=== PATIENT | female | born 2005 | race Caucasian/White ===

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

== ENCOUNTER 2023-02-04 21:43 | Emergency (ER) | payer OTHER ==
[~2023-02-04] VITALS: Ht 172.7 cm; Wt 73.3 kg
[~2023-02-04 21:43] MED LIST changes: +DILA100C PO
[2023-02-04 22:15] VITALS: BP 132/75
[2023-02-04 22:46] LABS: BASO # 0.1 10^3/uL (0.0-0.2); BASO % 0.9 % (0.0-1.0); EOS # 0.1 10^3/uL (0.0-0.5); EOS % 1.4 % (0.0-3.0); HEMATOCRIT 37.6 % (36.0-47.0); HEMOGLOBIN 12.4 g/dl (12.0-15.5); LYMPH # 2.1 10^3/uL (1.5-5.0); MEAN CORPUSCULAR HEMOGLOBIN 30.2 pg (27.0-33.0); MEAN CORPUSCULAR VOLUME 91.5 fl (80.0-96.0); MONO # 0.6 10^3/uL (0.0-0.8); MONO % 6.4 % (2.0-8.0); NEUTROPHILS # 5.8 10^3/uL (1.5-8.5); NEUTROPHILS % 67.1 % (36.0-66.0); PLATELET COUNT, AUTOMATED 290 10^3/uL (150-450); RED BLOOD COUNT 4.11 10^6/uL (4.00-5.40); WHITE BLOOD COUNT 8.7 10^3/uL (4.0-10.0)
[2023-02-04 22:52] LABS: ETHYL ALCOHOL (ETHANOL) < 0.003 % (0.000-0.010)
[2023-02-04 22:54] LABS: ALKALINE PHOSPHATASE 52 U/L (46-116); ALT/SGPT 19 U/L (7.0-40); AST/SGOT 21 U/L (<34); BILIRUBIN,DIRECT < 0.1 MG/DL (<0.4); BILIRUBIN,TOTAL 0.2 MG/DL (0.3-1.2); BLOOD UREA NITROGEN 19 MG/DL (9-23); CALCIUM LEVEL 9.3 MG/DL (8.5-10.1); CARBON DIOXIDE LEVEL 26 MMOL/L (20-31); CHLORIDE LEVEL 107 MMOL/L (98-107); CREATININE FOR GFR 0.77 MG/DL (0.55-1.30); GLUCOSE, FASTING 73 MG/DL (60-100); MAGNESIUM LEVEL 1.9 MG/DL (1.8-2.4); POTASSIUM SERUM 4.2 MMOL/L (3.5-5.1); SODIUM LEVEL 144 MMOL/L (136-145); TOTAL PROTEIN 6.8 G/DL (5.7-8.2)
[2023-02-04] MEDS ORDERED: PHENYTOIN INJ 250MG/5ML VIAL IV ONE (23:05)
[2023-02-04] MEDS ORDERED: PHENYTOIN IV ONE (23:15)
[2023-02-04] MEDS ORDERED: NS IV ONE (23:15)
[2023-02-04] MEDS ORDERED: PHENYTOIN ER 100 MG CAP PO ONE (23:45)
== END 2023-02-05 00:05 | disposition home or self-care (01) ==
LOC: M ED 21:43 → EDBD 21:43 → M ED 02-05 00:05
DX: R56.9 Unspecified convulsions (principal); F17.200 Nicotine dependence, unspecified, uncomplicated; Z91.040 Latex allergy status; Z79.51 Long term (current) use of inhaled steroids

== ENCOUNTER 2023-05-09 17:00 | Emergency (ER) | payer OTHER ==
[~2023-05-09] VITALS: Ht 170.2 cm; Wt 73.7 kg
[2023-05-09 17:05] VITALS: TEMP 98.1
[2023-05-09 17:16] LABS: IONIZED CALCIUM 4.7 MG/DL (4.5-5.3)
[2023-05-09] MEDS ORDERED: NORE1PAT (17:20)
[2023-05-09 17:21] LABS: BASO # 0.1 10^3/uL (0.0-0.2); BASO % 1.2 % (0.0-1.0); EOS # 0.1 10^3/uL (0.0-0.5); EOS % 2.1 % (0.0-3.0); HEMATOCRIT 41.9 % (36.0-47.0); HEMOGLOBIN 13.9 g/dl (12.0-15.5); LYMPH # 1.2 10^3/uL (1.5-5.0); LYMPH % 24.1 % (24.0-44.0); MEAN CORPUSCULAR HEMOGLOBIN 30.2 pg (27.0-33.0); MEAN CORPUSCULAR HGB CONC 33.2 g/dl (32.0-36.5); MEAN CORPUSCULAR VOLUME 90.9 fl (80.0-96.0); MONO # 0.4 10^3/uL (0.0-0.8); MONO % 9.1 % (2.0-8.0); NEUTROPHILS % 63.3 % (36.0-66.0); PLATELET COUNT, AUTOMATED 249 10^3/uL (150-450); RED BLOOD COUNT 4.61 10^6/uL (4.00-5.40); WHITE BLOOD COUNT 4.8 10^3/uL (4.0-10.0)
[2023-05-09] MEDS ORDERED: levETIRAcetam INJection 1,000 MG in D5W 100 ML IV ONE (17:30)
[2023-05-09 17:52] LABS: ALBUMIN 4.1 G/DL (3.2-5.2); ALKALINE PHOSPHATASE 44 U/L (46-116); ALT/SGPT 12 U/L (7.0-40); AST/SGOT 12 U/L (<34); BILIRUBIN,DIRECT 0.2 MG/DL (<0.4); BILIRUBIN,TOTAL 0.5 MG/DL (0.3-1.2); BLOOD UREA NITROGEN 13 MG/DL (9-23); CALCIUM LEVEL 9.5 MG/DL (8.5-10.1); CARBON DIOXIDE LEVEL 24 MMOL/L (20-31); CHLORIDE LEVEL 110 MMOL/L (98-107); CREATININE FOR GFR 0.67 MG/DL (0.55-1.30); GLUCOSE, FASTING 95 MG/DL (60-100); MAGNESIUM LEVEL 1.8 MG/DL (1.8-2.4); PHOSPHORUS LEVEL 3.1 MG/DL (2.5-4.9); POTASSIUM SERUM 4.1 MMOL/L (3.5-5.1); SODIUM LEVEL 142 MMOL/L (136-145); TOTAL PROTEIN 7.2 G/DL (5.7-8.2)
[2023-05-09 17:57] LABS: RSV AMPLIFICATION NEGATIVE (NEGATIVE)
[2023-05-09] MEDS ORDERED: LORazepam 2 MG/ML 1ML VIAL IV STA (18:12)
[2023-05-09 22:30] VITALS: BP 130/76; O2SAT 100
[2023-05-09] MEDS ORDERED: KEPP1TAB2 PO (22:53)
== END 2023-05-09 23:27 | disposition home or self-care (01) ==
LOC: M ED 17:00 → EDBD 17:00 → M ED 23:27
DX: G40.909 Epilepsy, unspecified, not intractable, without status epilepticus (principal); Z91.040 Latex allergy status; Z79.51 Long term (current) use of inhaled steroids; Z79.3 Long term (current) use of hormonal contraceptives
CPT/HCPCS: 70450; 80048; 80076; 82140; 82330; 83605; 83735; 84100; 84702; 85025; 87631; 93041; 94760; 96374; 96375; 99285; J1953; J2060

== ENCOUNTER → 2023-06-10 | Outpatient (REF) | payer OTHER ==
[~2023-06-10] MED LIST changes: +KEPP1TAB2 PO; +NORE1PAT
[2023-06-10 19:07] LABS: BASO # 0.1 10^3/uL (0.0-0.2); BASO % 1.5 % (0.0-1.0); EOS # 0.2 10^3/uL (0.0-0.5); EOS % 3.4 % (0.0-3.0); HEMATOCRIT 39.8 % (36.0-47.0); LYMPH # 1.5 10^3/uL (1.5-5.0); LYMPH % 28.1 % (24.0-44.0); MEAN CORPUSCULAR HEMOGLOBIN 30.4 pg (27.0-33.0); MEAN CORPUSCULAR HGB CONC 32.7 g/dl (32.0-36.5); MONO # 0.4 10^3/uL (0.0-0.8); MONO % 8.4 % (2.0-8.0); NEUTROPHILS % 57.1 % (36.0-66.0); PLATELET COUNT, AUTOMATED 259 10^3/uL (150-450); RED BLOOD COUNT 4.28 10^6/uL (4.00-5.40); WHITE BLOOD COUNT 5.3 10^3/uL (4.0-10.0)
[2023-06-10 19:34] LABS: THYROID STIMULATING HORMONE 1.971 uIU/ML (0.48-4.17)
[2023-06-10 19:35] LABS: ALBUMIN 3.9 G/DL (3.2-5.2); ALKALINE PHOSPHATASE 40 U/L (46-116); ALT/SGPT < 9 U/L (7.0-40); AST/SGOT 9 U/L (<34); BILIRUBIN,TOTAL 0.4 MG/DL (0.3-1.2); BLOOD UREA NITROGEN 13 MG/DL (9-23); CALCIUM LEVEL 9.6 MG/DL (8.5-10.1); CARBON DIOXIDE LEVEL 23 MMOL/L (20-31); CHLORIDE LEVEL 109 MMOL/L (98-107); CHOLESTEROL LEVEL 168 MG/DL (<200); CHOLESTEROL RISK RATIO 2.08 (<5); CREATININE FOR GFR 0.67 MG/DL (0.55-1.30); GLUCOSE, FASTING 77 MG/DL (60-100); HDL CHOLESTEROL 80.4 MG/DL (>40); LDL CHOLESTEROL 70.2 MG/DL (<100); NON-HDL-C 87.6 MG/DL; POTASSIUM SERUM 4.9 MMOL/L (3.5-5.1); SODIUM LEVEL 141 MMOL/L (136-145); TRIGLYCERIDES LEVEL 87 MG/DL (<150)
[2023-06-10 19:59] LABS: HIV 1&2 SCREEN NEGATIVE (NEGATIVE)
[2023-06-10 20:00] LABS: GC DNA AMPLIFICATION NEGATIVE (NEGATIVE)
[2023-06-10 20:07] LABS: HEPATITIS C VIRUS ABY INDEX 0.12 INDEX (<0.8)
[2023-06-12 10:11] LABS: HEMOGLOBIN A1c 5.1 % (4.0-6.0)
== END ==
LOC: M LAB REF 16:11
PROVIDERS: ATTEND Physician Assistant
DX: Z11.3 Encounter for screening for infections with a predominantly sexual mode of transmission (principal); Z13.228 Encounter for screening for other metabolic disorders; G40.911 Epilepsy, unspecified, intractable, with status epilepticus

== ENCOUNTER 2023-07-29 15:03 | Inpatient (IN) | payer OTHER ==
[~2023-07-29] VITALS: Ht 167.6 cm; Wt 71.0 kg
[2023-07-29] VITALS (14 sets, daily range): BP systolic 117–146; BP diastolic 55–77; TEMP 97.5–98.3; O2SAT 99–100
[2023-07-29] MEDS ORDERED: ETOMIDATE INJ 20MG/10ML VIAL IV ONE (15:10)
[2023-07-29] MEDS ORDERED: ROCURONIUM BROMIDE 50MG/5ML VIAL IV ONE (15:10)
[2023-07-29] MEDS ORDERED: MIDAZOLAM 100MG/100ML-0.9%NACL 100 MG in IV 1 EA IV SCH ×2 (15:10→17:35)
[2023-07-29] MEDS: LORazepam 2 MG/ML 1ML VIAL IV PRN ×2 (15:19→16:17)
[2023-07-29 15:33] LABS: BASO # 0.1 10^3/uL (0.0-0.2); BASO % 0.5 % (0.0-1.0); EOS % 0.3 % (0.0-3.0); HEMATOCRIT 43.4 % (36.0-47.0); HEMOGLOBIN 14.6 g/dl (12.0-15.5); LYMPH # 1.4 10^3/uL (1.5-5.0); LYMPH % 13.8 % (24.0-44.0); MEAN CORPUSCULAR HEMOGLOBIN 30.7 pg (27.0-33.0); MEAN CORPUSCULAR HGB CONC 33.6 g/dl (32.0-36.5); MEAN CORPUSCULAR VOLUME 91.4 fl (80.0-96.0); MONO # 0.6 10^3/uL (0.0-0.8); MONO % 5.9 % (2.0-8.0); NEUTROPHILS # 7.8 10^3/uL (1.5-8.5); NEUTROPHILS % 79.3 % (36.0-66.0); PLATELET COUNT, AUTOMATED 266 10^3/uL (150-450); RED BLOOD COUNT 4.75 10^6/uL (4.00-5.40); WHITE BLOOD COUNT 9.8 10^3/uL (4.0-10.0)
[2023-07-29 15:47] LABS: ABG BASE EXCESS -2.6 (-2.0-2.0); ABG HCO3 21.6 MMOL/L (22.0-26.0); ABG O2 SATURATION 99.3 % (95.0-99.0); ABG PARTIAL PRESSURE CO2 36.1 mmHg (35.0-45.0); ABG PARTIAL PRESSURE O2 190.3 mmHg (75.0-100.0); ABG STANDARD HCO3 22.3 MMOL/L. (22.0-26.0); ABG TOTAL CO2 22.7 MMOL/L (22.0-29.0); ABG pH (ARTERIAL) 7.395 UNITS (7.350-7.450)
[2023-07-29 15:55] LABS: ALBUMIN 4.2 G/DL (3.2-5.2); ALKALINE PHOSPHATASE 48 U/L (46-116); ALT/SGPT 16 U/L (7.0-40); AST/SGOT 21 U/L (<34); BILIRUBIN,DIRECT 0.1 MG/DL (<0.4); BILIRUBIN,TOTAL 0.4 MG/DL (0.3-1.2); BLOOD UREA NITROGEN 13 MG/DL (9-23); CALCIUM LEVEL 9.4 MG/DL (8.5-10.1); CARBON DIOXIDE LEVEL 20 MMOL/L (20-31); CHLORIDE LEVEL 110 MMOL/L (98-107); CREATININE FOR GFR 0.81 MG/DL (0.55-1.30); GLUCOSE, FASTING 109 MG/DL (60-100); MAGNESIUM LEVEL 1.8 MG/DL (1.8-2.4); POTASSIUM SERUM 4.5 MMOL/L (3.5-5.1); SODIUM LEVEL 142 MMOL/L (136-145); TOTAL PROTEIN 7.4 G/DL (5.7-8.2)
[2023-07-29] MEDS ORDERED: LEVETIRACETAM IV ONE (16:00)
[2023-07-29] MEDS ORDERED: D5W IV ONE (16:00)
[2023-07-29] MEDS: ROCURONIUM BROMIDE 50MG/5ML VIAL IV PRN ×2 (16:26→16:59)
[2023-07-29] MEDS ORDERED: propofoL 1,000 MG in IV 1 EA IV SCH (16:50)
[2023-07-29] MEDS: propofoL 1,000 MG in IV 1 EA IV SCH ×3 (17:35→23:23)
[2023-07-29 18:32] LABS: AMPHETAMINES LEVEL URINE NEGATIVE (NEGATIVE); BARBITURATES URINE NEGATIVE (NEGATIVE); COCAINE METABOLITE URINE NEGATIVE (NEGATIVE); METHADONE URINE NEGATIVE (NEGATIVE); OPIATES URINE NEGATIVE (NEGATIVE); PHENCYCLIDINE URINE NEGATIVE (NEGATIVE)
[2023-07-29 18:37] LABS: BENZODIAZEPINES URINE POSITIVE (NEGATIVE); CANNABINOIDS URINE POSITIVE (NEGATIVE)
[2023-07-29] MEDS ORDERED: MED REC COMMENT (19:12)
[2023-07-29] MEDS ORDERED: HOME MED LIST COMPLETE! XX SCH (19:20)
[2023-07-29] MEDS: MIDAZOLAM 100MG/100ML-0.9%NACL 100 MG in IV 1 EA IV SCH (20:12)
[2023-07-29] MEDS: MIDAZOLAM INJ 2MG/2ML VIAL IV PRN (20:17)
[2023-07-29] MEDS: CHLORHEXIDINE GLUCONATE 0.12 % 15ML UDC (PERIDEX ORAL RINSE) MT SCH (20:27)
[2023-07-29] MEDS ORDERED: ATORVASTATIN 20 MG TAB PO SCH (21:00)
[2023-07-29 21:22] LABS: ETHYL ALCOHOL (ETHANOL) < 0.003 % (0.000-0.010)
[2023-07-29 21:23] LABS: ACETAMINOPHEN LEVEL < 2.0 UG/ML (10.0-20.0); SALICYLATE LEVEL < 3.0 MG/DL (<30)
[2023-07-29 21:41] LABS: HCG, SERUM QUALITATIVE NEGATIVE (NEGATIVE)
[2023-07-29] MEDS ORDERED: LR 1,000 ML IV ONE (23:20)
[2023-07-30] VITALS (37 sets, daily range): BP systolic 114–149; BP diastolic 56–83; TEMP 96.7–97.8; O2SAT 92–100
[2023-07-30] MEDS: propofoL 1,000 MG in IV 1 EA IV SCH ×7 (02:47→23:08)
[2023-07-30] MEDS: MIDAZOLAM 100MG/100ML-0.9%NACL 100 MG in IV 1 EA IV SCH ×2 (02:47→16:36)
[2023-07-30] MEDS: levETIRAcetam INJection 1,000 MG in D5W 100 ML IV SCH ×2 (03:54→16:33)
[2023-07-30 05:33] LABS: BASO % 0.5 % (0.0-1.0); EOS # 0.1 10^3/uL (0.0-0.5); EOS % 0.9 % (0.0-3.0); HEMOGLOBIN 13.6 g/dl (12.0-15.5); LYMPH # 1.6 10^3/uL (1.5-5.0); LYMPH % 17.6 % (24.0-44.0); MEAN CORPUSCULAR VOLUME 91.1 fl (80.0-96.0); MONO # 0.8 10^3/uL (0.0-0.8); MONO % 8.8 % (2.0-8.0); NEUTROPHILS # 6.3 10^3/uL (1.5-8.5); PLATELET COUNT, AUTOMATED 220 10^3/uL (150-450); RED BLOOD COUNT 4.39 10^6/uL (4.00-5.40); WHITE BLOOD COUNT 8.8 10^3/uL (4.0-10.0)
[2023-07-30] MEDS ORDERED: LR 1,000 ML IV ONE ×2 (06:00→16:05)
[2023-07-30 06:02] LABS: ALBUMIN 3.7 G/DL (3.2-5.2); BLOOD UREA NITROGEN 11 MG/DL (9-23); CALCIUM LEVEL 8.9 MG/DL (8.5-10.1); CARBON DIOXIDE LEVEL 25 MMOL/L (20-31); CHLORIDE LEVEL 110 MMOL/L (98-107); CREATININE FOR GFR 0.77 MG/DL (0.55-1.30); GLUCOSE, FASTING 81 MG/DL (60-100); PHOSPHORUS LEVEL 3.9 MG/DL (2.5-4.9); POTASSIUM SERUM 3.9 MMOL/L (3.5-5.1); SODIUM LEVEL 142 MMOL/L (136-145)
[2023-07-30] MEDS: CHLORHEXIDINE GLUCONATE 0.12 % 15ML UDC (PERIDEX ORAL RINSE) MT SCH ×2 (08:37→20:20)
[2023-07-30] MEDS: ENOXAPARIN 40MG/0.4ML SYRINGE (J1650 PER 10MG) SC SCH (08:37)
[2023-07-30] MEDS: PANTOPRAZOLE 40MG VIAL IV SCH (08:37)
[2023-07-30] MEDS ORDERED: MIDAZOLAM INJ 2MG/2ML VIAL IV STA (13:29)
[2023-07-30] MEDS ORDERED: NS IV ONE (17:00)
[2023-07-30] MEDS ORDERED: PHENYTOIN IV ONE (17:00)
[2023-07-30] MEDS: LR 1,000 ML IV SCH ×2 (17:18→18:04)
[2023-07-30] MEDS: MIDAZOLAM INJ 2MG/2ML VIAL IV PRN (17:30)
[2023-07-31] VITALS (27 sets, daily range): BP systolic 105–140; BP diastolic 51–81; TEMP 97.5–98.3; O2SAT 95–100
[2023-07-31] MEDS: LR 1,000 ML IV SCH ×2 (00:57→13:35)
[2023-07-31] MEDS: PHENYTOIN 100MG/2ML VIAL IV SCH ×2 (00:57→08:55)
[2023-07-31] MEDS: propofoL 1,000 MG in IV 1 EA IV SCH ×3 (02:34→11:58)
[2023-07-31] MEDS: levETIRAcetam INJection 1,000 MG in D5W 100 ML IV SCH (03:49)
[2023-07-31 06:20] LABS: PHENYTOIN (DILANTIN) 12.9 UG/ML (10.0-20.0)
[2023-07-31 06:22] LABS: ALBUMIN 3.1 G/DL (3.2-5.2); ALKALINE PHOSPHATASE 39 U/L (46-116); ALT/SGPT < 9 U/L (7.0-40); AST/SGOT 22 U/L (<34); BILIRUBIN,DIRECT 0.1 MG/DL (<0.4); BILIRUBIN,TOTAL 0.3 MG/DL (0.3-1.2); BLOOD UREA NITROGEN 9 MG/DL (9-23); CARBON DIOXIDE LEVEL 24 MMOL/L (20-31); CHLORIDE LEVEL 111 MMOL/L (98-107); CREATININE FOR GFR 0.63 MG/DL (0.55-1.30); GLUCOSE, FASTING 74 MG/DL (60-100); POTASSIUM SERUM 3.9 MMOL/L (3.5-5.1); SODIUM LEVEL 142 MMOL/L (136-145); TOTAL PROTEIN 5.4 G/DL (5.7-8.2)
[2023-07-31] MEDS: CHLORHEXIDINE GLUCONATE 0.12 % 15ML UDC (PERIDEX ORAL RINSE) MT SCH (08:55)
[2023-07-31] MEDS: ENOXAPARIN 40MG/0.4ML SYRINGE (J1650 PER 10MG) SC SCH (08:57)
[2023-07-31] MEDS: PANTOPRAZOLE 40MG VIAL IV SCH (08:58)
[2023-07-31] MEDS: MIDAZOLAM 100MG/100ML-0.9%NACL 100 MG in IV 1 EA IV SCH (10:10)
== END 2023-07-31 17:04 | disposition left against medical advice (07) | DRG 53 ==
LOC: M ED 15:03 → M ED INP 17:31 → M ICU 18:15
PROVIDERS: ADMIT Internal Medicine Pulmonary Disease; ATTEND Internal Medicine Pulmonary Disease
PROC: 0BH17EZ Insertion of Endotracheal Airway into Trachea, Via Natural or Artificial Opening (ICD-10-PCS; principal; 2023-07-29)
PROC: 5A1945Z Respiratory Ventilation, 24-96 Consecutive Hours (ICD-10-PCS; 2023-07-29)
DX: G40.401 Other generalized epilepsy and epileptic syndromes, not intractable, with status epilepticus (principal); J96.90 Respiratory failure, unspecified, unspecified whether with hypoxia or hypercapnia; F41.9 Anxiety disorder, unspecified; F10.20 Alcohol dependence, uncomplicated; Z91.198 Patient's noncompliance with other medical treatment and regimen for other reason; Z79.899 Other long term (current) drug therapy; Z91.040 Latex allergy status

== ENCOUNTER → 2023-10-07 | Outpatient (REF) | payer OTHER, MEDICAID ==
[~2023-10-07] MED LIST changes: +MED REC COMMENT
[2023-10-07 19:21] LABS: CHLAMYDIA DNA AMPLIFICATION POSITIVE (NEGATIVE); GC DNA AMPLIFICATION NEGATIVE (NEGATIVE)
== END ==
LOC: M LAB REF 16:23
PROVIDERS: ATTEND Nurse Practitioner Family
DX: N93.0 Postcoital and contact bleeding (principal)

== ENCOUNTER 2023-10-25 02:39 | Inpatient (IN) | payer MEDICAID, OTHER, SELFPAY ==
[2023-10-25] VITALS (33 sets, daily range): BP systolic 58–126; BP diastolic 24–71; TEMP 97.3–98.3; O2SAT 95–99
[2023-10-25] MEDS ORDERED: LORazepam 2 MG/ML 1ML VIAL IV STA ×5 (02:41→18:27)
[2023-10-25] MEDS ORDERED: NS 1,000 ML IV ONE ×3 (02:45→12:10)
[2023-10-25] MEDS ORDERED: LORazepam 2 MG/ML 1ML VIAL IM STA (02:50)
[2023-10-25] MEDS ORDERED: PROPOFOL 1,000 MG/100 ML VIAL As Ordered ONE (03:03)
[2023-10-25] MEDS ORDERED: propofoL 1,000 MG in IV 1 EA IV SCH (03:05)
[2023-10-25] MEDS ORDERED: ROCURONIUM BROMIDE 50MG/5ML VIAL IV ONE (03:05)
[2023-10-25] MEDS ORDERED: ETOMIDATE INJ 20MG/10ML VIAL IV ONE (03:05)
[2023-10-25 03:10] LABS: BASO # 0.1 10^3/uL (0.0-0.2); BASO % 0.9 % (0.0-1.0); EOS # 0.2 10^3/uL (0.0-0.5); EOS % 1.3 % (0.0-3.0); HEMATOCRIT 46.9 % (36.0-47.0); HEMOGLOBIN 15.1 g/dl (12.0-15.5); LYMPH % 38.2 % (24.0-44.0); MEAN CORPUSCULAR HEMOGLOBIN 30.3 pg (27.0-33.0); MEAN CORPUSCULAR HGB CONC 32.2 g/dl (32.0-36.5); MEAN CORPUSCULAR VOLUME 94.2 fl (80.0-96.0); MONO # 1.1 10^3/uL (0.0-0.8); MONO % 8.4 % (2.0-8.0); NEUTROPHILS # 6.6 10^3/uL (1.5-8.5); PLATELET COUNT, AUTOMATED 350 10^3/uL (150-450); RED BLOOD COUNT 4.98 10^6/uL (4.00-5.40); WHITE BLOOD COUNT 13.1 10^3/uL (4.0-10.0)
[2023-10-25 03:28] LABS: ABG BASE EXCESS -5.3 (-2.0-2.0); ABG HCO3 18.8 MMOL/L (22.0-26.0); ABG PARTIAL PRESSURE O2 203.8 mmHg (75.0-100.0); ABG STANDARD HCO3 20.1 MMOL/L. (22.0-26.0); ABG TOTAL CO2 19.7 MMOL/L (22.0-29.0); ABG pH (ARTERIAL) 7.386 UNITS (7.350-7.450)
[2023-10-25 03:40] LABS: ETHYL ALCOHOL (ETHANOL) 0.231 % (0.000-0.010); HCG, SERUM QUALITATIVE NEGATIVE (NEGATIVE)
[2023-10-25 03:41] LABS: CPK CREATINE PHOSPHOKINASE 120 U/L (34-145); SALICYLATE LEVEL < 3.0 MG/DL (<30)
[2023-10-25 03:42] LABS: ALBUMIN 5.1 G/DL (3.2-5.2); ALKALINE PHOSPHATASE 69 U/L (46-116); ALT/SGPT 16 U/L (7.0-40); AST/SGOT 16 U/L (<34); BILIRUBIN,DIRECT 0.1 MG/DL (<0.4); BILIRUBIN,TOTAL 0.4 MG/DL (0.3-1.2); BLOOD UREA NITROGEN 12 MG/DL (9-23); CALCIUM LEVEL 10.2 MG/DL (8.5-10.1); CARBON DIOXIDE LEVEL 16 MMOL/L (20-31); CHLORIDE LEVEL 108 MMOL/L (98-107); CREATININE FOR GFR 0.76 MG/DL (0.55-1.30); GLUCOSE, FASTING 99 MG/DL (60-100); SODIUM LEVEL 145 MMOL/L (136-145); TOTAL PROTEIN 8.4 G/DL (5.7-8.2)
[2023-10-25 03:43] LABS: THYROID STIMULATING HORMONE 4.874 uIU/ML (0.48-4.17)
[2023-10-25 04:48] LABS: AMPHETAMINES LEVEL URINE NEGATIVE (NEGATIVE); BARBITURATES URINE NEGATIVE (NEGATIVE); BENZODIAZEPINES URINE NEGATIVE (NEGATIVE); COCAINE METABOLITE URINE NEGATIVE (NEGATIVE); METHADONE URINE NEGATIVE (NEGATIVE); OPIATES URINE NEGATIVE (NEGATIVE); PHENCYCLIDINE URINE NEGATIVE (NEGATIVE)
[2023-10-25 04:49] LABS: CANNABINOIDS URINE POSITIVE (NEGATIVE)
[2023-10-25] MEDS ORDERED: HOME MED LIST COMPLETE! XX SCH (05:20)
[2023-10-25] MEDS ORDERED: levETIRAcetam INJection 1,500 MG in D5W 100 ML IV ONE (06:00)
[2023-10-25] MEDS ORDERED: NS 0.45% 1,000 ML IV SCH (06:05)
[2023-10-25] MEDS: propofoL 1,000 MG in IV 1 EA IV SCH ×4 (06:17→22:04)
[2023-10-25 06:22] LABS: ABG BASE EXCESS -0.7 (-2.0-2.0); ABG HCO3 22.9 MMOL/L (22.0-26.0); ABG O2 SATURATION 99.1 % (95.0-99.0); ABG PARTIAL PRESSURE CO2 34.8 mmHg (35.0-45.0); ABG PARTIAL PRESSURE O2 181.5 mmHg (75.0-100.0); ABG STANDARD HCO3 23.9 MMOL/L. (22.0-26.0); ABG pH (ARTERIAL) 7.436 UNITS (7.350-7.450)
[2023-10-25] MEDS: MIDAZOLAM INJ 2MG/2ML VIAL IV PRN ×3 (07:15→19:58)
[2023-10-25] MEDS: THIAMINE 200MG 2ML VIAL IM SCH (07:33)
[2023-10-25] MEDS: HEPARIN SOD (PORCINE) 5000UNITS/ML 1ML VIAL/SYRINGE SC SCH ×3 (07:35→21:35)
[2023-10-25] MEDS: ALBUTEROL SULFATE 2.5MG/0.5ML INH NEB SOLN NEB SCH ×4 (08:10→19:41)
[2023-10-25 08:53] LABS: OSMOLALITY SERUM 323 MOSM/KG (275-295)
[2023-10-25 08:57] LABS: BLOOD UREA NITROGEN 10 MG/DL (9-23); CALCIUM LEVEL 8.4 MG/DL (8.5-10.1); CARBON DIOXIDE LEVEL 23 MMOL/L (20-31); CHLORIDE LEVEL 113 MMOL/L (98-107); CREATININE FOR GFR 0.55 MG/DL (0.55-1.30); GLUCOSE, FASTING 86 MG/DL (60-100); MAGNESIUM LEVEL 1.8 MG/DL (1.8-2.4); PHOSPHORUS LEVEL 3.7 MG/DL (2.5-4.9); POTASSIUM SERUM 3.6 MMOL/L (3.5-5.1); SODIUM LEVEL 146 MMOL/L (136-145)
[2023-10-25] MEDS ORDERED: PANTOPRAZOLE 40MG VIAL IV SCH (09:00)
[2023-10-25] MEDS: dexmedeTOMidine 200 MCG in IV 1 EA IV SCH ×8 (09:00→23:21)
[2023-10-25] MEDS: LORazepam 2 MG/ML 1ML VIAL IV PRN (12:40)
[2023-10-25] MEDS: NS 1,000 ML IV SCH ×2 (13:15→20:12)
[2023-10-25] MEDS: levETIRAcetam INJection 1,000 MG in D5W 100 ML IV SCH (20:17)
[2023-10-25] MEDS: PANTOPRAZOLE 40MG VIAL IV SCH (21:35)
[2023-10-26] VITALS (23 sets, daily range): BP systolic 116–138; BP diastolic 63–80; TEMP 96.6–98.6; O2SAT 96–100
[2023-10-26] MEDS: dexmedeTOMidine 200 MCG in IV 1 EA IV SCH ×5 (01:20→08:56)
[2023-10-26] MEDS: propofoL 1,000 MG in IV 1 EA IV SCH ×2 (02:41→06:45)
[2023-10-26] MEDS: NS 1,000 ML IV SCH (04:41)
[2023-10-26 04:55] LABS: BASO % 0.6 % (0.0-1.0); EOS # 0.2 10^3/uL (0.0-0.5); EOS % 2.8 % (0.0-3.0); HEMATOCRIT 34.8 % (36.0-47.0); LYMPH % 30.3 % (24.0-44.0); MEAN CORPUSCULAR HEMOGLOBIN 31.2 pg (27.0-33.0); MEAN CORPUSCULAR HGB CONC 34.2 g/dl (32.0-36.5); MEAN CORPUSCULAR VOLUME 91.3 fl (80.0-96.0); MONO # 0.6 10^3/uL (0.0-0.8); MONO % 8.3 % (2.0-8.0); NEUTROPHILS # 3.9 10^3/uL (1.5-8.5); NEUTROPHILS % 57.9 % (36.0-66.0); PLATELET COUNT, AUTOMATED 202 10^3/uL (150-450); RED BLOOD COUNT 3.81 10^6/uL (4.00-5.40); WHITE BLOOD COUNT 6.7 10^3/uL (4.0-10.0)
[2023-10-26 04:56] LABS: HEMOGLOBIN 11.9 g/dl (12.0-15.5)
[2023-10-26 05:24] LABS: ETHYL ALCOHOL (ETHANOL) 0.004 % (0.000-0.010)
[2023-10-26] MEDS: LORazepam 2 MG/ML 1ML VIAL IV PRN (05:27)
[2023-10-26] MEDS: MIDAZOLAM INJ 2MG/2ML VIAL IV PRN (05:27)
[2023-10-26 05:36] LABS: ALBUMIN 3.3 G/DL (3.2-5.2); ALKALINE PHOSPHATASE 59 U/L (46-116); ALT/SGPT 10 U/L (7.0-40); AST/SGOT 15 U/L (<34); BILIRUBIN,TOTAL 0.7 MG/DL (0.3-1.2); BLOOD UREA NITROGEN 7 MG/DL (9-23); CALCIUM LEVEL 8.1 MG/DL (8.5-10.1); CARBON DIOXIDE LEVEL 21 MMOL/L (20-31); CHLORIDE LEVEL 115 MMOL/L (98-107); CREATININE FOR GFR 0.47 MG/DL (0.55-1.30); GLUCOSE, FASTING 119 MG/DL (60-100); POTASSIUM SERUM 3.4 MMOL/L (3.5-5.1); SODIUM LEVEL 144 MMOL/L (136-145); TOTAL PROTEIN 5.5 G/DL (5.7-8.2)
[2023-10-26 05:39] LABS: ABG BASE EXCESS -1.5 (-2.0-2.0); ABG HCO3 20.8 MMOL/L (22.0-26.0); ABG O2 SATURATION 98.6 % (95.0-99.0); ABG PARTIAL PRESSURE CO2 28.4 mmHg (35.0-45.0); ABG PARTIAL PRESSURE O2 130.8 mmHg (75.0-100.0); ABG STANDARD HCO3 23.2 MMOL/L. (22.0-26.0); ABG TOTAL CO2 21.7 MMOL/L (22.0-29.0); ABG pH (ARTERIAL) 7.483 UNITS (7.350-7.450)
[2023-10-26] MEDS: HEPARIN SOD (PORCINE) 5000UNITS/ML 1ML VIAL/SYRINGE SC SCH ×2 (05:40→15:04)
[2023-10-26] MEDS: ALBUTEROL SULFATE 2.5MG/0.5ML INH NEB SOLN NEB SCH (07:06)
[2023-10-26] MEDS ORDERED: KCL 10MEQ/100ML SWI (KRUN) 10 MEQ in IV 1 EA IV SCH (08:00)
[2023-10-26] MEDS: PANTOPRAZOLE 40MG VIAL IV SCH ×2 (08:12→21:00)
[2023-10-26] MEDS: THIAMINE 200MG 2ML VIAL IM SCH (08:12)
[2023-10-26] MEDS: levETIRAcetam INJection 1,000 MG in D5W 100 ML IV SCH ×2 (08:53→20:00)
[2023-10-26] MEDS ORDERED: KEPP10002 PO (17:55)
[2023-10-26] MEDS ORDERED: ACETAMINOPHEN TAB 650MG DOSE (2X325MG) PO PRN (19:55)
[2023-10-26] MEDS ORDERED: POTASSIUM CHLORIDE 10% LIQ 20MEQ/15ML UDC PO ONE ×2 (20:50→21:00)
[2023-10-26] MEDS ORDERED: levETIRAcetam 250MG TABLET (KEPPRA) PO ONE (21:00)
[2023-10-26] MEDS ORDERED: NEOSPORIN TOP OINT 15GM TOP SCH (21:00)
== END 2023-10-26 21:20 | disposition left against medical advice (07) | DRG 53 ==
LOC: M ED 02:39 → M ED INP 05:17 → M ICU 08:34
PROVIDERS: ADMIT Internal Medicine; ATTEND Student in an Organized Health Care Education/Training Program
PROC: 0BH17EZ Insertion of Endotracheal Airway into Trachea, Via Natural or Artificial Opening (ICD-10-PCS; principal; 2023-10-25)
PROC: 5A1945Z Respiratory Ventilation, 24-96 Consecutive Hours (ICD-10-PCS; 2023-10-25)
DX: G40.409 Other generalized epilepsy and epileptic syndromes, not intractable, without status epilepticus (principal); G92.8 Other toxic encephalopathy; E87.20 Acidosis, unspecified; F12.10 Cannabis abuse, uncomplicated; F17.290 Nicotine dependence, other tobacco product, uncomplicated; F10.229 Alcohol dependence with intoxication, unspecified; R41.82 Altered mental status, unspecified; R45.1 Restlessness and agitation; Z91.040 Latex allergy status

== ENCOUNTER → 2023-12-24 | Outpatient (REF) | payer OTHER, SELFPAY ==
[2023-12-24 18:32] LABS: Trichomonas vaginalis (AMP) NOT DETECTED (NEGATIVE)
[2023-12-24 18:56] LABS: GC DNA AMPLIFICATION NEGATIVE (NEGATIVE)
== END ==
LOC: M LAB REF 16:31
PROVIDERS: ATTEND Nurse Practitioner Family
DX: Z11.9 Encounter for screening for infectious and parasitic diseases, unspecified (principal)

== ENCOUNTER 2023-12-28 00:56 | Emergency (ER) | payer OTHER, SELFPAY ==
[~2023-12-28] VITALS: Ht 170.2 cm; Wt 77.8 kg
[2023-12-28] MEDS ORDERED: LORazepam 2 MG/ML 1ML VIAL As Ordered ONE (01:10)
[2023-12-28] MEDS: LORazepam 2 MG/ML 1ML VIAL IV PRN (01:14)
[2023-12-28 01:55] LABS: IONIZED CALCIUM 4.3 MG/DL (4.5-5.3)
[2023-12-28 02:00] LABS: BASO # 0.1 10^3/uL (0.0-0.2); BASO % 1.1 % (0.0-1.0); EOS % 0.7 % (0.0-3.0); HEMATOCRIT 41.5 % (36.0-47.0); HEMOGLOBIN 13.6 g/dl (12.0-15.5); LYMPH # 1.2 10^3/uL (1.5-5.0); LYMPH % 21.7 % (24.0-44.0); MEAN CORPUSCULAR HEMOGLOBIN 30.2 pg (27.0-33.0); MEAN CORPUSCULAR HGB CONC 32.8 g/dl (32.0-36.5); MONO # 0.3 10^3/uL (0.0-0.8); NEUTROPHILS # 3.8 10^3/uL (1.5-8.5); NEUTROPHILS % 70.3 % (36.0-66.0); PLATELET COUNT, AUTOMATED 334 10^3/uL (150-450); RED BLOOD COUNT 4.51 10^6/uL (4.00-5.40); WHITE BLOOD COUNT 5.4 10^3/uL (4.0-10.0)
[2023-12-28 02:15] LABS: ETHYL ALCOHOL (ETHANOL) 0.083 % (0.000-0.010)
[2023-12-28] MEDS: levETIRAcetam INJection 1,500 MG in D5W 100 ML IV ONE (02:16)
[2023-12-28 02:17] LABS: ALBUMIN 4.4 G/DL (3.2-5.2); ALKALINE PHOSPHATASE 51 U/L (46-116); ALT/SGPT 16 U/L (7.0-40); AST/SGOT 22 U/L (<34); BILIRUBIN,DIRECT < 0.1 MG/DL (<0.4); BILIRUBIN,TOTAL 0.2 MG/DL (0.3-1.2); BLOOD UREA NITROGEN 8 MG/DL (9-23); CALCIUM LEVEL 9.3 MG/DL (8.5-10.1); CARBON DIOXIDE LEVEL 20 MMOL/L (20-31); CHLORIDE LEVEL 108 MMOL/L (98-107); CREATININE FOR GFR 0.64 MG/DL (0.55-1.30); GLUCOSE, FASTING 89 MG/DL (60-100); MAGNESIUM LEVEL 1.7 MG/DL (1.8-2.4); POTASSIUM SERUM 4.4 MMOL/L (3.5-5.1); SODIUM LEVEL 140 MMOL/L (136-145); TOTAL PROTEIN 7.3 G/DL (5.7-8.2)
[2023-12-28] MEDS ORDERED: KEPP10002 PO (03:09)
[2023-12-28] MEDS: levETIRAcetam 250MG TABLET (KEPPRA) PO ONE (03:13)
[2023-12-28 03:15] VITALS: O2SAT 99
[2023-12-28 03:17] VITALS: BP 130/70; TEMP 98.2
== END 2023-12-28 03:40 | disposition home or self-care (01) ==
LOC: M ED 00:56 → EDBD 00:56 → M ED 03:40
DX: G40.509 Epileptic seizures related to external causes, not intractable, without status epilepticus (principal); Z91.148 Patient's other noncompliance with medication regimen for other reason; F10.10 Alcohol abuse, uncomplicated; F19.10 Other psychoactive substance abuse, uncomplicated; Z91.040 Latex allergy status; Z79.899 Other long term (current) drug therapy
CPT/HCPCS: 80048; 80076; 80180; 80185; 82077; 82140; 82330; 83605; 83735; 84100; 85025; 87486; 87581; 87633; 87798; 93041; 94760; 96374; 99285; J1953; J2060

== ENCOUNTER 2024-03-07 11:13 | Emergency (ER) | payer OTHER ==
[~2024-03-07] VITALS: Ht 172.7 cm; Wt 74.1 kg
[2024-03-07 11:14] VITALS: BP 152/76; TEMP 97.7; O2SAT 99
[2024-03-07] MEDS ORDERED: MELO15TA28 PO (12:54)
== END 2024-03-07 13:26 | disposition home or self-care (01) ==
LOC: M ED 11:13
DX: M25.532 Pain in left wrist (principal); Z91.040 Latex allergy status; Z79.899 Other long term (current) drug therapy

== ENCOUNTER 2024-06-15 14:29 | Emergency (ER) | payer OTHER ==
[~2024-06-15] VITALS: Ht 170.2 cm; Wt 76.6 kg
[~2024-06-15 14:29] MED LIST changes: +MELO15TA28 PO; +ONDA-282 PO; -ONDA4TAB6 PO
[2024-06-15] MEDS: D5W IV ONE (15:09)
[2024-06-15] MEDS: LEVETIRACETAM IV ONE (15:09)
[2024-06-15] MEDS: HALOPERIDOL LACTATE 5MG/ML VIAL IM STA (15:35)
[2024-06-15 15:36] LABS: BASO # 0.1 10^3/uL (0.0-0.2); BASO % 0.8 % (0.0-1.0); EOS # 0.1 10^3/uL (0.0-0.5); EOS % 1.3 % (0.0-3.0); HEMATOCRIT 39.3 % (36.0-47.0); HEMOGLOBIN 13.1 g/dl (12.0-15.5); LYMPH # 1.5 10^3/uL (1.5-5.0); LYMPH % 24.5 % (24.0-44.0); MEAN CORPUSCULAR HEMOGLOBIN 30.3 pg (27.0-33.0); MEAN CORPUSCULAR HGB CONC 33.3 g/dl (32.0-36.5); MONO # 0.6 10^3/uL (0.0-0.8); MONO % 8.9 % (2.0-8.0); NEUTROPHILS % 64.2 % (36.0-66.0); PLATELET COUNT, AUTOMATED 261 10^3/uL (150-450); RED BLOOD COUNT 4.32 10^6/uL (4.00-5.40); WHITE BLOOD COUNT 6.3 10^3/uL (4.0-10.0)
[2024-06-15 15:58] LABS: ETHYL ALCOHOL (ETHANOL) < 0.003 % (0.000-0.010)
[2024-06-15 16:22] LABS: ALBUMIN 4.6 G/DL (3.2-5.2); ALKALINE PHOSPHATASE 50 U/L (46-116); ALT/SGPT 22 U/L (7.0-40); AST/SGOT 28 U/L (<34); BILIRUBIN,DIRECT 0.1 MG/DL (<0.4); BILIRUBIN,TOTAL 0.5 MG/DL (0.3-1.2); BLOOD UREA NITROGEN 15 MG/DL (9-23); CALCIUM LEVEL 9.7 MG/DL (8.5-10.1); CARBON DIOXIDE LEVEL 23 MMOL/L (20-31); CHLORIDE LEVEL 110 MMOL/L (98-107); CPK CREATINE PHOSPHOKINASE 161 U/L (34-145); CREATININE FOR GFR 0.65 MG/DL (0.55-1.30); GLUCOSE, FASTING 77 MG/DL (60-100); MAGNESIUM LEVEL 1.9 MG/DL (1.8-2.4); PHOSPHORUS LEVEL 3.3 MG/DL (2.5-4.9); POTASSIUM SERUM 5.6 MMOL/L (3.5-5.1); PROLACTIN 6.99 NG/ML; SODIUM LEVEL 140 MMOL/L (136-145); TOTAL PROTEIN 7.7 G/DL (5.7-8.2)
[2024-06-15 16:59] LABS: AMPHETAMINES LEVEL URINE NEGATIVE (NEGATIVE); BARBITURATES URINE NEGATIVE (NEGATIVE); COCAINE METABOLITE URINE NEGATIVE (NEGATIVE); METHADONE URINE NEGATIVE (NEGATIVE); OPIATES URINE NEGATIVE (NEGATIVE); PHENCYCLIDINE URINE NEGATIVE (NEGATIVE)
[2024-06-15 17:00] LABS: BENZODIAZEPINES URINE POSITIVE (NEGATIVE); CANNABINOIDS URINE POSITIVE (NEGATIVE)
[2024-06-15] MEDS ORDERED: KEPP10002 PO (17:20)
[2024-06-15 18:08] LABS: HCG, SERUM QUALITATIVE NEGATIVE (NEGATIVE)
[2024-06-15 18:30] VITALS: BP 106/55; O2SAT 100
[2024-06-15 18:53] VITALS: TEMP 98
== END 2024-06-15 18:55 | disposition home or self-care (01) ==
LOC: EDBD 14:29 → M ED 14:29
DX: G40.909 Epilepsy, unspecified, not intractable, without status epilepticus (principal); Z91.040 Latex allergy status; Z79.899 Other long term (current) drug therapy
CPT/HCPCS: 36415; 36600; 70450; 72125; 80048; 80076; 80307; 82077; 82550; 83735; 84100; 84146; 84703; 85025; 87486; 87581; 87633; 87798; 93005; 93041; 94760; 96365; 96366; 96372; 99285; J1630; J1953

== ENCOUNTER → 2024-10-05 | Outpatient (REF) | payer OTHER ==
[2024-10-05 17:48] LABS: Trichomonas vaginalis (AMP) NOT DETECTED (NEGATIVE)
[2024-10-05 18:11] LABS: GC DNA AMPLIFICATION NEGATIVE (NEGATIVE)
== END ==
LOC: M LAB REF 16:13
PROVIDERS: ATTEND Physician Assistant
DX: Z11.3 Encounter for screening for infections with a predominantly sexual mode of transmission (principal)

== ENCOUNTER 2024-11-05 03:01 | Emergency (ER) | payer OTHER ==
[~2024-11-05] VITALS: Ht 170.2 cm; Wt 79.1 kg
[2024-11-05] MEDS ORDERED: LORazepam 2 MG TAB PO PRN (03:10)
[2024-11-05] MEDS ORDERED: levETIRAcetam INJection 1,000 MG in D5W 100 ML IV ONE (03:10)
[2024-11-05] MEDS: LORazepam 2 MG/ML 1ML VIAL IM STA (03:23)
[2024-11-05 04:31] LABS: BASO % 0.5 % (0.0-1.0); EOS % 0.3 % (0.0-3.0); HEMOGLOBIN 13.8 g/dl (12.0-15.5); LYMPH # 1.2 10^3/uL (1.5-5.0); MEAN CORPUSCULAR HGB CONC 32.9 g/dl (32.0-36.5); MEAN CORPUSCULAR VOLUME 91.3 fl (80.0-96.0); MONO # 0.6 10^3/uL (0.0-0.8); MONO % 7.6 % (2.0-8.0); NEUTROPHILS # 5.5 10^3/uL (1.5-8.5); NEUTROPHILS % 75.3 % (36.0-66.0); PLATELET COUNT, AUTOMATED 238 10^3/uL (150-450); WHITE BLOOD COUNT 7.4 10^3/uL (4.0-10.0)
[2024-11-05 04:52] LABS: PHENCYCLIDINE URINE NEGATIVE (NEGATIVE)
[2024-11-05 04:53] LABS: AMPHETAMINES LEVEL URINE NEGATIVE (NEGATIVE); BARBITURATES URINE NEGATIVE (NEGATIVE); BENZODIAZEPINES URINE NEGATIVE (NEGATIVE); COCAINE METABOLITE URINE NEGATIVE (NEGATIVE); METHADONE URINE NEGATIVE (NEGATIVE); OPIATES URINE NEGATIVE (NEGATIVE)
[2024-11-05 04:54] LABS: ETHYL ALCOHOL (ETHANOL) 0.147 % (0.000-0.010)
[2024-11-05 04:56] LABS: CPK CREATINE PHOSPHOKINASE 152 U/L (34-145); SALICYLATE LEVEL < 3.0 MG/DL (<30)
[2024-11-05 04:58] LABS: THYROID STIMULATING HORMONE 3.508 uIU/ML (0.55-4.78)
[2024-11-05 05:00] LABS: CANNABINOIDS URINE POSITIVE (NEGATIVE)
[2024-11-05] MEDS: HALOPERIDOL LACTATE 5MG/ML VIAL IM STA (05:24)
[2024-11-05] MEDS: levETIRAcetam 250MG TABLET (KEPPRA) PO ONE (05:24)
[2024-11-05] MEDS: diphenhydrAMINE 50MG/ML VIAL IM STA (05:24)
[2024-11-05 05:32] LABS: ALBUMIN 4.7 G/DL (3.2-5.2); ALKALINE PHOSPHATASE 51 U/L (35-104); ALT/SGPT 17 U/L (7.0-40); AST/SGOT 19 U/L (<34); BILIRUBIN,TOTAL 0.3 MG/DL (0.3-1.2); BLOOD UREA NITROGEN 12 MG/DL (9-23); CALCIUM LEVEL 9.1 MG/DL (8.5-10.1); CARBON DIOXIDE LEVEL 18 MMOL/L (20-31); CHLORIDE LEVEL 109 MMOL/L (98-107); CREATININE FOR GFR 0.67 MG/DL (0.55-1.30); GLOMERULAR FILTRATION RATE > 60.0 (>60); GLUCOSE, FASTING 116 MG/DL (60-100); POTASSIUM SERUM 3.7 MMOL/L (3.5-5.1); SODIUM LEVEL 144 MMOL/L (136-145); TOTAL PROTEIN 7.6 G/DL (5.7-8.2)
[2024-11-05 05:39] LABS: HCG, SERUM QUALITATIVE NEGATIVE (NEGATIVE)
[2024-11-05 05:47] LABS: BILIRUBIN,DIRECT 0.1 MG/DL (<0.4)
[2024-11-05 06:45] VITALS: O2SAT 97
[2024-11-05 06:46] VITALS: BP 92/48
[2024-11-05 06:47] VITALS: TEMP 97.8
== END 2024-11-05 07:21 | disposition home or self-care (01) ==
LOC: M ED 03:01 → EDBD 03:01 → M ED 07:21
DX: F43.0 Acute stress reaction (principal); F10.120 Alcohol abuse with intoxication, uncomplicated; H72.92 Unspecified perforation of tympanic membrane, left ear; G40.909 Epilepsy, unspecified, not intractable, without status epilepticus; R00.0 Tachycardia, unspecified; F12.10 Cannabis abuse, uncomplicated; Z91.040 Latex allergy status; Z79.899 Other long term (current) drug therapy
CPT/HCPCS: 70450; 70486; 80048; 80076; 80143; 80307; 82077; 82550; 84443; 84702; 84703; 85025; 93005; 96372; 99284; J1200; J1630; J2060

== ENCOUNTER → 2024-12-22 | Outpatient (CLI) | payer OTHER ==
[2024-12-22 17:46] LABS: HEMOGLOBIN 13.6 g/dl (12.0-15.5); MEAN CORPUSCULAR HEMOGLOBIN 30.7 pg (27.0-33.0); MEAN CORPUSCULAR HGB CONC 33.2 g/dl (32.0-36.5); MEAN CORPUSCULAR VOLUME 92.6 fl (80.0-96.0); PLATELET COUNT, AUTOMATED 343 10^3/uL (150-450); RED BLOOD COUNT 4.43 10^6/uL (4.00-5.40); WHITE BLOOD COUNT 8.4 10^3/uL (4.0-10.0)
[2024-12-22 18:22] LABS: HIV 1&2 SCREEN NEGATIVE (NEGATIVE)
[2024-12-22 19:06] LABS: GC DNA AMPLIFICATION NEGATIVE (NEGATIVE)
== END ==
LOC: M PLALAB 14:03
PROVIDERS: ATTEND Obstetrics & Gynecology
DX: Z34.91 Encounter for supervision of normal pregnancy, unspecified, first trimester (principal); Z3A.10 10 weeks gestation of pregnancy; Z31.430 Encounter of female for testing for genetic disease carrier status for procreative management

== ENCOUNTER → 2025-01-23 | Outpatient (CLI) | payer OTHER | LOC: M SLEEP 07:52 | PROVIDERS: ATTEND Psychiatry & Neurology Neurology | DX: G40.909 Epilepsy, unspecified, not intractable, without status epilepticus (principal) ==

== ENCOUNTER 2025-02-22 16:21 | Emergency (ER) | payer OTHER ==
[~2025-02-22] VITALS: Ht 172.7 cm; Wt 81.8 kg
[2025-02-22 17:33] VITALS: BP 115/69; TEMP 98.6; O2SAT 93
== END 2025-02-22 17:40 | disposition home or self-care (01) ==
LOC: M ED 16:21
DX: F44.5 Conversion disorder with seizures or convulsions (principal); F41.9 Anxiety disorder, unspecified; Z91.040 Latex allergy status; Z3A.00 Weeks of gestation of pregnancy not specified

== ENCOUNTER → 2025-03-02 | Outpatient (CLI) | payer OTHER | LOC: M WHC 13:14 | PROVIDERS: ATTEND Advanced Practice Midwife | DX: Z34.02 Encounter for supervision of normal first pregnancy, second trimester (principal) ==

== ENCOUNTER 2025-05-15 16:05 | Outpatient (CLI) | payer OTHER ==
[~2025-05-15] VITALS: Ht 170.2 cm; Wt 95.0 kg
[2025-05-15 16:14] VITALS: BP 128/76
== END 2025-05-15 17:00 | disposition home or self-care (01) ==
LOC: M LDO 16:05
PROVIDERS: ATTEND Specialist
DX: O26.893 Other specified pregnancy related conditions, third trimester (principal); O99.323 Drug use complicating pregnancy, third trimester; R10.2 Pelvic and perineal pain; M25.552 Pain in left hip; F12.10 Cannabis abuse, uncomplicated; Z3A.31 31 weeks gestation of pregnancy
CPT/HCPCS: 59025; G0463

== ENCOUNTER → 2025-06-20 | Outpatient (REF) | payer OTHER | LOC: M PLALAB 13:41 | PROVIDERS: ATTEND Nurse Practitioner Family | DX: Z34.83 Encounter for supervision of other normal pregnancy, third trimester (principal) ==

== ENCOUNTER → 2025-06-20 | Outpatient (CLI) | payer OTHER | LOC: M WHC 15:14 | PROVIDERS: ATTEND Nurse Practitioner Family | DX: O28.8 Other abnormal findings on antenatal screening of mother (principal) ==

== ENCOUNTER → 2025-07-05 | Outpatient (CLI) | payer OTHER ==
[2025-07-05 15:53] LABS: LDH LACTATE DEHYDROGENASE 225 U/L (120-246)
[2025-07-05 15:54] LABS: ALT/SGPT 19 U/L (7.0-40); AST/SGOT 26 U/L (<34); CREATININE FOR GFR 0.53 MG/DL (0.55-1.30); GLOMERULAR FILTRATION RATE > 90.0 (>60)
[2025-07-05 15:58] LABS: PLATELET COUNT, AUTOMATED 347 10^3/uL (150-450)
[2025-07-05 16:09] LABS: TOTAL PROTEIN,RANDOM URINE 33.0 MG/DL (0.0-14.0)
== END ==
LOC: M PLALAB 12:30
PROVIDERS: ATTEND Advanced Practice Midwife
DX: Z34.03 Encounter for supervision of normal first pregnancy, third trimester (principal); Z3A.00 Weeks of gestation of pregnancy not specified

== ENCOUNTER 2025-07-06 12:53 | Inpatient (IN) | payer OTHER ==
[2025-07-06] VITALS (9 sets, daily range): BP systolic 122–156; BP diastolic 57–81
[~2025-07-06] VITALS: Ht 175.3 cm; Wt 100.3 kg
[2025-07-06] MEDS ORDERED: OXYTOCIN DRIP 30 UNITS in IV 1 EA IV PRN (13:35)
[2025-07-06] MEDS ORDERED: TRANEXAMIC ACID INJection 1,000 MG in NS 100 ML IV PRN (13:35)
[2025-07-06] MEDS ORDERED: METHYLERGONOVINE MALEATE 0.2 MG/ML 1 ML VIAL IM PRN (13:35)
[2025-07-06] MEDS ORDERED: LIDOCAINE 1% MDV 20 ML VIAL INFIL PRN (13:35)
[2025-07-06] MEDS ORDERED: CARBOPROST TROMETHAMINE 250 MCG/ML AMP IM PRN (13:35)
[2025-07-06 15:15] LABS: PLATELET COUNT, AUTOMATED 315 10^3/uL (150-450)
[2025-07-06] MEDS: miSOPROStol 50 MCG 1/2 TABLET PO SCH (16:01)
[2025-07-06 16:06] LABS: HIV 1&2 SCREEN NEGATIVE (NEGATIVE)
[2025-07-06 16:13] LABS: HEPATITIS C VIRUS ABY INDEX < 0.02 INDEX (<0.8)
[2025-07-07] VITALS (37 sets, daily range): BP systolic 120–191; BP diastolic 56–111
[2025-07-07] MEDS: ONDANSETRON 4MG 2ML VIAL IV PRN (09:33)
[2025-07-07] MEDS: OXYTOCIN DRIP 30 UNITS in IV 1 EA IV SCH (09:33)
[2025-07-07] MEDS: LR 1,000 ML IV SCH (18:26)
[2025-07-07] MEDS ORDERED: ONDANSETRON 4MG 2ML VIAL IV PRN (23:10)
[2025-07-07] MEDS ORDERED: diphenhydrAMINE 50 MG/ML VIAL IV PRN (23:10)
[2025-07-07] MEDS ORDERED: NALOXONE INJ 0.4 MG/1 ML VIAL IV PRN (23:10)
[2025-07-07] MEDS ORDERED: LR 500 ML IV PRN (23:10)
[2025-07-07] MEDS ORDERED: EPIDURAL/PCA KEYS XX PRN (23:10)
[2025-07-07] MEDS: LACTATED RINGER'S 1000 ML IV STA (23:11)
[2025-07-08] VITALS (46 sets, daily range): BP systolic 114–180; BP diastolic 56–104; O2SAT 96–98
[2025-07-08] MEDS: FENTANYL/ROPIVACAINE/NACL BAG 100 ML EPIDURAL SCH (00:43)
[2025-07-08] MEDS ORDERED: RHOGAM 300MCG (1500IU) INJ IM SCH (08:05)
[2025-07-08] MEDS ORDERED: ACETAMINOPHEN 500 MG TAB PO PRN (08:05)
[2025-07-08] MEDS ORDERED: METHYLERGONOVINE MALEATE 0.2 MG TAB PO PRN (08:05)
[2025-07-08] MEDS ORDERED: CALCIUM CARBONATE 500 MG CHEW U/D PO PRN (08:05)
[2025-07-08] MEDS ORDERED: DOCUSATE SODIUM 100 MG CAPSULE PO PRN (08:05)
[2025-07-08] MEDS ORDERED: ANUSOL HC CREAM 30 GM TOP PRN (08:05)
[2025-07-08] MEDS ORDERED: IBUPROFEN 600 MG TAB PO PRN (08:05)
[2025-07-08] MEDS ORDERED: IBUPROFEN 800 MG TAB PO PRN (08:05)
[2025-07-08] MEDS ORDERED: DIBUCAINE 1% OINTMENT 30 GM TOP PRN (08:05)
[2025-07-08] MEDS ORDERED: ONDANSETRON 4MG 2ML VIAL IV PRN (08:05)
[2025-07-08] MEDS: OXYTOCIN DRIP 30 UNITS in IV 1 EA IV SCH (08:15)
[2025-07-08] MEDS: LR 1,000 ML IV SCH (08:45)
[2025-07-08] MEDS: PRENATAL VITAMINS CHEWABLE TABLET PO SCH (09:00)
[2025-07-08] MEDS: FERROUS SULFATE 325 MG TAB PO SCH (09:00)
[2025-07-08] MEDS: LABETALOL 100 MG/20 ML VIAL IV STA (10:46)
[2025-07-09 02:00] VITALS: BP 140/92; O2SAT 100
[2025-07-09 06:04] VITALS: BP 138/84; O2SAT 98
[2025-07-09 10:00] VITALS: BP 149/72; O2SAT 98
[2025-07-09 14:00] VITALS: BP 146/88; O2SAT 98
[2025-07-09 15:43] LABS: PLATELET COUNT, AUTOMATED 321 10^3/uL (150-450)
[2025-07-09 16:00] LABS: LDH LACTATE DEHYDROGENASE 284 U/L (120-246)
[2025-07-09 16:01] LABS: ALT/SGPT 27 U/L (7.0-40); AST/SGOT 47 U/L (<34); CREATININE FOR GFR 0.60 MG/DL (0.55-1.30); GLOMERULAR FILTRATION RATE > 90.0 (>60)
[2025-07-09 18:00] VITALS: BP 149/83; O2SAT 97
[2025-07-09 22:00] VITALS: BP 130/78; O2SAT 99
[2025-07-10 02:00] VITALS: BP 142/77; O2SAT 95
[2025-07-10 06:00] VITALS: BP 132/71; O2SAT 98
[2025-07-10] MEDS: MEASLES,MUMPS,RUBELLA VACCINE INJ (MMR-II) SC.IMMUN ONE (09:00)
[2025-07-10] MEDS: ACETAMINOPHEN 325 MG TAB PO PRN (09:52)
[2025-07-10 10:00] VITALS: BP 147/90; O2SAT 98
== END 2025-07-10 14:45 | disposition home or self-care (01) | DRG 560 ==
LOC: M LDI 12:53 → M OBS 07-08 11:50
PROVIDERS: ADMIT Advanced Practice Midwife; ATTEND Obstetrics & Gynecology
PROC: 3E0P7GC Introduction of Other Therapeutic Substance into Female Reproductive, Via Natural or Artificial Opening (ICD-10-PCS; 2025-07-06)
PROC: 10E0XZZ Delivery of Products of Conception, External Approach (ICD-10-PCS; principal; 2025-07-08)
DX: O14.14 Severe pre-eclampsia complicating childbirth (principal); F17.210 Nicotine dependence, cigarettes, uncomplicated; Z3A.38 38 weeks gestation of pregnancy; O99.334 Smoking (tobacco) complicating childbirth; Z91.040 Latex allergy status; Z37.0 Single live birth

== ENCOUNTER 2025-09-29 15:57 | Emergency (ER) | payer OTHER ==
[~2025-09-29] VITALS: Ht 172.7 cm; Wt 83.5 kg
[2025-09-29] MEDS ORDERED: SERT25TA21 (16:01)
[2025-09-29] MEDS ORDERED: HYDR-3713 PO (19:34)
[2025-09-29 19:46] VITALS: BP 129/91; TEMP 98.3; O2SAT 100
== END 2025-09-29 20:19 | disposition home or self-care (01) ==
LOC: M ED 15:57
DX: S49.92XA Unspecified injury of left shoulder and upper arm, initial encounter (principal); Y92.9 Unspecified place or not applicable; Y93.9 Activity, unspecified; Y99.0 Civilian activity done for income or pay; W01.0XXA Fall on same level from slipping, tripping and stumbling without subsequent striking against object, initial encounter; Z91.040 Latex allergy status; Z79.1 Long term (current) use of non-steroidal anti-inflammatories (NSAID); Z79.899 Other long term (current) drug therapy

== ENCOUNTER → 2025-10-10 | Outpatient (REF) | payer OTHER ==
[~2025-10-10] MED LIST changes: +HYDR-3713 PO; +SERT25TA21
[2025-10-10 16:30] LABS: Trichomonas vaginalis (AMP) NOT DETECTED (NEGATIVE)
[2025-10-10 16:53] LABS: GC DNA AMPLIFICATION NEGATIVE (NEGATIVE)
[2025-10-12 13:56] LABS: HPV APTIMA Detected (Not Detected)
== END ==
LOC: M PLALAB 11:10
PROVIDERS: ATTEND Obstetrics & Gynecology
DX: Z12.4 Encounter for screening for malignant neoplasm of cervix (principal); Z11.3 Encounter for screening for infections with a predominantly sexual mode of transmission